=== PATIENT | female | born 1995 | race Caucasian/White ===

== ENCOUNTER 2017-04-14 14:19 | Emergency (ER) | payer BC, OTHER ==
[2017-04-14 14:24] VITALS: BP 113/71
[2017-04-14] MEDS ORDERED: Acetaminophen/oxyCODONE 325-5 MG Tab PO ONE (14:59)
--- NOTE | 2017-04-14 15:06 | EDM.PDOC ---
ED HPI GENERAL MEDICAL PROBLEM - General Chief Complaint: General Stated Complaint: R Ear pain Time Seen by Provider: 04/14/17 14:50 Source of Information: Reports: Patient History Limitations: Reports: No Limitations - History of Present Illness INITIAL COMMENTS - FREE TEXT/NARRATIVE: Patient complains of right ear pain that has been present for two days. Adds that she felt "pop" in ear on way here but no change in discomfort. Traction on ear lobe makes pain worse. Has been taking ibuprofen. Nothing really helps pain. Poor sleep for last two nights. Says pain at times runs down towards side of neck. Denies trauma. Denies recent cold/URI. No ear drainage. No other complaints. 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 Right Ear Pain Score (Numeric/FACES): 20 - Related Data Allergies Allergy/AdvReac Type Severity Reaction Status Date / Time amoxicillin Allergy Hives Verified 04/14/17 15:33 azithromycin Allergy Hives Verified 04/14/17 15:33 [From Zithromax Z-Julián] ketorolac tromethamine Allergy Redness Verified 04/14/17 15:33 [From Toradol] latex Allergy Rash Verified 04/14/17 15:33 Penicillins Allergy Anaphylactic Verified 04/14/17 15:33 Shock Sulfa (Sulfonamide Allergy Anaphylactic Verified 04/14/17 15:33 Antibiotics) Shock vancomycin Allergy Hives Verified 04/14/17 15:33 BANDAID ADHESIVE Allergy Rash Uncoded 04/14/17 15:33 Home Meds: Home Meds Insulin Glarg,Human.Rec.Analog [Lantus] 30 units SQ QPM 08/12/14 [History] Insulin Lispro [HumaLOG] 2 unit SQ ASDIRECTED 06/05/16 [History] Acetaminophen with Codeine [Tylenol with Codeine #3 Tablet] 1 each PO Q6HR PRN # 8 tablet 04/14/17 [Rx] Hydrocort/Neomycin/Polymyxin B [Cortisporin Otic Susp] 10 ml EARRT QID #1 bottle 04/14/17 [Rx] Past Medical History HEENT History: Reports: Cataract, Other (See Below) Other HEENT History: diabetic retinopathy Cardiovascular History: Reports: Heart Murmur Respiratory History: Reports: Asthma, Bronchitis, Recurrent, Pneumonia, Recurrent Gastrointestinal History: Reports: None Genitourinary History: Reports: Pyelonephritis 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 fractured left arm 2011 and right foot 2014. fractured skull 2013. 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 - Infectious Disease History Infectious Disease History: Reports: None - Past Surgical History Head Surgeries/Procedures: Reports: None GI Surgical History: Reports: Appendectomy Social & Family History - Tobacco Use Smoking Status *Q: Current Every Day Smoker Years of Tobacco use: 6 Packs/Tins Daily: 0.5 Used Tobacco, but Quit: No Second Hand Smoke Exposure: Yes - Caffeine Use Caffeine Use: Reports: None - Alcohol Use Days Per Week of Alcohol Use: 0 - Recreational Drug Use Recreational Drug Use: No - Living Situation & Occupation Living situation: Reports: with Significant Other ED ROS GENERAL - Review of Systems Review Of Systems: See Below Constitutional: Reports: No Symptoms HEENT: Reports: Ear Pain, Other (Says hearing is a bit different out of right ear, but no complaint of hearing loss). Denies: Dental Pain, Ear Discharge, Eye Discharge, Eye Pain, Glasses, Hearing Loss, Nosebleed, Nose Pain, Rhinitis, Sinus Problem, Throat Pain, Throat Swelling, Vertigo, Vision Change Respiratory: Reports: No Symptoms Cardiovascular: Reports: No Symptoms GI/Abdominal: Reports: No Symptoms : Reports: No Symptoms Musculoskeletal: Reports: No Symptoms Skin: Reports: No Symptoms Neurological: Reports: No Symptoms Psychiatric: Reports: No Symptoms Hematologic/Lymphatic: Reports: No Symptoms ED EXAM, GENERAL - Physical Exam Exam: See Below Free Text/Narrative:: Patient told nursing staff at time of intake that pain was "20" on scale of 1- 10. No appearance of discomfort. Walking around room easily, squatting on floor to interact with baby, bending over without difficulty. Speaks easily, normal level of interaction. Exam Limited By: No Limitations General Appearance: Alert, WD/WN, No Apparent Distress Eye Exam: Bilateral Eye: EOMI, PERRL Ear Exam: Right Ear: Tenderness, Other (pain with traction of ear lobe. Inner canal has area of erythema. No skin breakdown. No vesicles/pustules/scaling noted. ), Left Ear: Canal Normal, Bilateral Ear: Auricle Normal, TM normal Nose: Normal Inspection Throat/Mouth: Normal Inspection, Normal Voice, No Airway Compromise Head: Atraumatic, Normocephalic Neck: Normal Inspection, Supple, Non-Tender, Full Range of Motion. No: Lymphadenopathy (L), Lymphadenopathy (R) Respiratory/Chest: No Respiratory Distress Extremities: Normal Capillary Refill Neurological: Alert, Oriented, Normal Cognition, Normal Gait, No Motor/Sensory Deficits Psychiatric: Normal Affect, Normal Mood Skin Exam: Warm Course - Vital Signs Last Recorded V/S: Last Vital Signs Temp 36.7 C 04/14/17 14:24 Pulse 100 04/14/17 14:24 Resp 16 04/14/17 14:24 BP 113/71 04/14/17 14:24 Pulse Ox 100 04/14/17 14:24 - Orders/Labs/Meds Meds: Medications Discontinued Medications Generic Name Dose Route Start Last Admin Trade Name Chidi PRN Reason Stop Dose Admin Oxycodone/Acetaminophen 1 tab 04/14/17 14:59 04/14/17 15:11 Percocet 325-5 Mg PO 04/14/17 15:00 1 tab ONETIME ONE Administration - Re-Assessments/Exams Free Text/Narrative Re-Assessment/Exam: 04/14/17 16:40 Exam unremarkable except for reddened area noted inside right ear canal. May be otitis externa. Does have discomfort with traction on ear. TM appeared completely normal today. Again, patient complains of having significant pain and wants something so she can "sleep". No outward signs of discomfort observed at all during interaction. At this point in time will treat with Cortisporin drops as well as give small amount of T#3. Patient told to watch for changes/new symptoms. She is to follow up at clinic for recheck if symptoms do not improve over the weekend. She is to follow up as needed if things worsen suddenly. Departure - Departure Time of Disposition: 14:59 Disposition: Home, Self-Care 01 Condition: good Clinical Impression: Right ear pain Otitis externa of right ear Qualifiers: Otitis externa type: unspecified type Chronicity: acute Qualified Code(s): H60.501 - Unspecified acute noninfective otitis externa, right ear - Discharge Information Prescriptions: Acetaminophen with Codeine [Tylenol with Codeine #3 Tablet] 1 each PO Q6HR PRN # 8 tablet PRN Reason: Pain Hydrocort/Neomycin/Polymyxin B [Cortisporin Otic Susp] 10 ml EARRT QID #1 bottle Instructions: Otitis Externa, [id number] Referrals: PCP,None [Ordering Only Provider] - Forms: ED Department Discharge Additional Instructions: See if pain improves with the ear drops over the next few days. You have redness and irritation of skin in the canal on that right side. At present, your ear drum appears normal. No redness. No bulging. No obvious fluid. No signs of infection. If pain persists, follow up with your clinic/ locally and have your ear rechecked to see if anything has changed. They can adjust the treatment if needed.
== END 2017-04-14 15:25 | disposition home or self-care (01) ==
LOC: LL.ED 14:19
DX: H60.501 Unspecified acute noninfective otitis externa, right ear (principal); J45.909 Unspecified asthma, uncomplicated; E10.9 Type 1 diabetes mellitus without complications; Z90.49 Acquired absence of other specified parts of digestive tract; F17.210 Nicotine dependence, cigarettes, uncomplicated; Z88.1 Allergy status to other antibiotic agents; Z88.0 Allergy status to penicillin; Z88.5 Allergy status to narcotic agent; Z91.040 Latex allergy status; Z88.2 Allergy status to sulfonamides; Z91.09 Other allergy status, other than to drugs and biological substances; Z79.4 Long term (current) use of insulin
CPT/HCPCS: 99282; A9270

== ENCOUNTER 2017-11-24 19:35 | Emergency (ER) | payer MEDICAID, OTHER ==
[2017-11-24 19:59] VITALS: BP 150/71
--- NOTE | 2017-11-24 20:11 | EDM.PDOC ---
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 patient and her mother were extensively counseled on importance of tobacco cessation KEKE especially in light of current , child in the home, her diabetes, asthma, etc. She apparently already have tobacco cessation information at home, but does not appear interested in stopping. (7) Iron deficiency anemia SNOMED Code(s): 22610447 Code(s): D50.9 - IRON DEFICIENCY ANEMIA, UNSPECIFIED Status: Chronic Priority: High Annotation/Comment:: Progressive anemia as above Qualifiers: Iron deficiency anemia type: other iron deficiency Qualified Code(s): D50.8 - Other iron deficiency anemias (8) Hyperkalemia SNOMED Code(s): 86800025 Code(s): E87.5 - HYPERKALEMIA Status: Acute Priority: Medium Onset Date : 11/24/17 Annotation/Comment:: Mild hyperkalemia despite recurrent emesis and recent diarrhea. Continue to observe renal function closely with diabetic nephropathy, etc. as above. Note blood draw prior to initiation of lactated Ringer's - Problem List Review Problem List Initiated/Reviewed/Updated: Yes - My Orders Last 24 Hours: My Active Orders 11/24/17 20:11 Blood Culture x2 Reflex Set [OM.PC] Urgent 11/24/17 20:13 Peripheral IV Care [RC] . DIRECTED Peripheral IV Insertion Adult [OM.PC] Routine 11/24/17 20:14 Obtain Past Medical Record [OM.PC] Routine 11/24/17 20:20 CULTURE STREP A CONFIRMATION [] Stat STREP SCRN A RAPID W CULT CONF [RM] Stat 11/24/17 20:25 CULTURE BLOOD [BC] Stat 11/24/17 20:46 CULTURE BLOOD [BC] Stat - Assessment/Plan Last 24 Hours: My Active Orders 11/24/17 20:11 Blood Culture x2 Reflex Set [OM.PC] Urgent 11/24/17 20:13 Peripheral IV Care [RC] . DIRECTED Peripheral IV Insertion Adult [OM.PC] Routine 11/24/17 20:14 Obtain Past Medical Record [OM.] Routine 11/24/17 20:20 CULTURE STREP A CONFIRMATION [RM] Stat STREP SCRN A RAPID W CULT CONF [RM] Stat 11/24/17 20:25 CULTURE BLOOD [BC] Stat 11/24/17 20:46 CULTURE BLOOD [BC] Stat Assessment:: As above Plan: As above. Extensive precautions were given to the patient and her mother, who is in agreement with the treatment plan. See Patient Instructions for further treatment and plan.
[2017-11-24] MEDS ORDERED: Lactated Ringers 1,000 ML IV ONE (20:13)
[2017-11-24] MEDS ORDERED: Sodium Chloride 0.9% 10 ML Syringe FLUSH PRN (20:13)
[2017-11-24] MEDS ORDERED: Famotidine 20 MG/2 ML SDV IVPUSH ONE (20:14)
[2017-11-24] MEDS ORDERED: Pantoprazole 40 MG Vial IVPUSH ONE (20:14)
== END 2017-11-24 21:40 | disposition home or self-care (01) ==
LOC: LL.ED 19:35
DX: O99.613 Diseases of the digestive system complicating pregnancy, third trimester (principal); K21.9 Gastro-esophageal reflux disease without esophagitis; K80.20 Calculus of gallbladder without cholecystitis without obstruction; O26.23 Pregnancy care for patient with recurrent pregnancy loss, third trimester; O99.283 Endocrine, nutritional and metabolic diseases complicating pregnancy, third trimester; E87.5 Hyperkalemia; O99.013 Anemia complicating pregnancy, third trimester; D50.8 Other iron deficiency anemias; O24.013 Pre-existing type 1 diabetes mellitus, in pregnancy, third trimester; E10.21 Type 1 diabetes mellitus with diabetic nephropathy; E10.42 Type 1 diabetes mellitus with diabetic polyneuropathy; O99.513 Diseases of the respiratory system complicating pregnancy, third trimester; J45.20 Mild intermittent asthma, uncomplicated; O99.333 Smoking (tobacco) complicating pregnancy, third trimester; F17.210 Nicotine dependence, cigarettes, uncomplicated; Z79.4 Long term (current) use of insulin; Z88.0 Allergy status to penicillin; Z88.1 Allergy status to other antibiotic agents; Z88.2 Allergy status to sulfonamides; Z88.6 Allergy status to analgesic agent; Z91.040 Latex allergy status; Z91.048 Other nonmedicinal substance allergy status; Z71.6 Tobacco abuse counseling; Z3A.32 32 weeks gestation of pregnancy
CPT/HCPCS: 36415; 80053; 82009; 82150; 82247; 82248; 83605; 83690; 83735; 84100; 84550; 85025; 85610; 85730; 86140; 87040; 87081; 87430; 87804; 96361; 96374; 96375; 99284; C9113; J7050; J7120; S0028

== ENCOUNTER 2018-07-23 21:05 | Emergency (ER) | payer MEDICAID ==
[2018-07-23 21:12] VITALS: BP 143/86
[2018-07-23] MEDS ORDERED: traMADol 50 MG Tab PO ONE (21:52)
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
== END 2018-07-23 22:45 | disposition left against medical advice (07) ==
LOC: LL.ED 21:05
DX: E87.6 Hypokalemia (principal); N19 Unspecified kidney failure; F17.210 Nicotine dependence, cigarettes, uncomplicated; J45.909 Unspecified asthma, uncomplicated; E10.319 Type 1 diabetes mellitus with unspecified diabetic retinopathy without macular edema; E10.42 Type 1 diabetes mellitus with diabetic polyneuropathy; E10.21 Type 1 diabetes mellitus with diabetic nephropathy; Z88.0 Allergy status to penicillin; Z88.1 Allergy status to other antibiotic agents; Z91.040 Latex allergy status; Z79.4 Long term (current) use of insulin; Z79.899 Other long term (current) drug therapy
CPT/HCPCS: 36415; 80053; 81001; 85025; 99284; A9270-GY

== ENCOUNTER 2018-08-30 01:33 | Emergency (ER) | payer MEDICAID ==
[2018-08-30] MEDS ORDERED: Metoclopramide 10 MG/2 ML SDV IVPUSH ONE (01:40)
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
[2018-08-30] MEDS ORDERED: diphenhydrAMINE 50 MG/ML SDV IVPUSH ONE (01:41)
[2018-08-30] MEDS ORDERED: Sodium Chloride 0.9% 10 ML Syringe FLUSH PRN (01:43)
[2018-08-30] MEDS: Lactated Ringers 1,000 ML IV ONE ×2 (01:48→02:06)
[2018-08-30 02:01] VITALS: BP 135/95
[2018-08-30] MEDS ORDERED: Sodium Chloride 0.9% 1,000 ML IV ONE (02:09)
[2018-08-30] MEDS ORDERED: LORazepam 2 MG/ML SDV IVPUSH ONE (02:12)
== END 2018-08-30 03:20 | disposition home or self-care (01) ==
LOC: LL.ED 01:33
DX: R51 Headache (principal); J45.20 Mild intermittent asthma, uncomplicated; E10.21 Type 1 diabetes mellitus with diabetic nephropathy; K21.9 Gastro-esophageal reflux disease without esophagitis; Z71.6 Tobacco abuse counseling; Z88.0 Allergy status to penicillin; Z88.1 Allergy status to other antibiotic agents; Z88.2 Allergy status to sulfonamides; Z91.040 Latex allergy status; Z91.09 Other allergy status, other than to drugs and biological substances; Z79.4 Long term (current) use of insulin; E10.22 Type 1 diabetes mellitus with diabetic chronic kidney disease; N18.9 Chronic kidney disease, unspecified; F17.210 Nicotine dependence, cigarettes, uncomplicated
CPT/HCPCS: 96361; 96374; 96375; 99284; J1200; J2060; J2765; J7030; J7050; J7120

== ENCOUNTER 2019-01-07 13:07 | Emergency (ER) | payer MEDICAID ==
[2019-01-07 13:15] VITALS: BP 145/90
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
[2019-01-07] MEDS ORDERED: traMADol 50 MG Tab PO ONE (14:09)
[2019-01-07] MEDS ORDERED: Acetaminophen 325 MG Tab PO ONE (14:14)
== END 2019-01-07 14:25 | disposition home or self-care (01) ==
LOC: LL.ED 13:07
DX: S60.221A Contusion of right hand, initial encounter (principal); F17.210 Nicotine dependence, cigarettes, uncomplicated; E10.21 Type 1 diabetes mellitus with diabetic nephropathy; E10.319 Type 1 diabetes mellitus with unspecified diabetic retinopathy without macular edema; J45.909 Unspecified asthma, uncomplicated; W55.09XA Other contact with cat, initial encounter; Z88.1 Allergy status to other antibiotic agents; Z88.5 Allergy status to narcotic agent; Z88.0 Allergy status to penicillin; Z88.2 Allergy status to sulfonamides; Z79.4 Long term (current) use of insulin; Z79.899 Other long term (current) drug therapy
CPT/HCPCS: 73100-RT; 73120-RT; 73140-F9; 99283; A9270-GY

== ENCOUNTER 2019-04-26 22:15 | Emergency (ER) | payer MEDICAID ==
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
[2019-04-26 22:21] VITALS: BP 143/92
[2019-04-26] MEDS ORDERED: diphenhydrAMINE 50 MG/ML SDV IVPUSH ONE (22:30)
[2019-04-26] MEDS ORDERED: LORazepam 2 MG/ML SDV IVPUSH ONE (22:30)
[2019-04-26] MEDS ORDERED: Promethazine 25 MG/ML SDV IM ONE (22:32)
[2019-04-26] MEDS: Sodium Chloride 0.9% 10 ML Syringe FLUSH PRN ×3 (22:59→23:01)
== END 2019-04-26 23:52 | disposition home or self-care (01) ==
LOC: LL.ED 22:15
DX: G43.009 Migraine without aura, not intractable, without status migrainosus (principal); E10.21 Type 1 diabetes mellitus with diabetic nephropathy; I12.0 Hypertensive chronic kidney disease with stage 5 chronic kidney disease or end stage renal disease; N18.5 Chronic kidney disease, stage 5; J45.909 Unspecified asthma, uncomplicated; Z71.6 Tobacco abuse counseling; K21.9 Gastro-esophageal reflux disease without esophagitis; E10.22 Type 1 diabetes mellitus with diabetic chronic kidney disease; F17.210 Nicotine dependence, cigarettes, uncomplicated; Z98.49 Cataract extraction status, unspecified eye; Z98.890 Other specified postprocedural states; Z90.49 Acquired absence of other specified parts of digestive tract; Z88.0 Allergy status to penicillin; Z88.1 Allergy status to other antibiotic agents; Z91.040 Latex allergy status; Z88.6 Allergy status to analgesic agent; Z88.2 Allergy status to sulfonamides; Z91.09 Other allergy status, other than to drugs and biological substances
CPT/HCPCS: 96372; 96374; 96375; 99283-25; J1200; J1642; J2060; J2550

== ENCOUNTER 2019-10-31 01:18 | Emergency (ER) | payer MEDICAID, MEDICARE ==
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
[2019-10-31] MEDS: Morphine 2 MG/ML Syringe IVPUSH ONE ×2 (02:00→02:37)
[2019-10-31] MEDS ORDERED: Metoprolol Tartrate 25 MG Tab PO ONE (02:16)
[2019-10-31] MEDS ORDERED: Morphine 2 MG/ML Syringe IM ONE (02:17)
[2019-10-31 02:51] VITALS: BP 216/97; PULSE 80
== END 2019-10-31 02:37 ==
LOC: LL.ED 01:18
DX: R07.9 Chest pain, unspecified (principal); I12.0 Hypertensive chronic kidney disease with stage 5 chronic kidney disease or end stage renal disease; E10.22 Type 1 diabetes mellitus with diabetic chronic kidney disease; N18.6 End stage renal disease; D72.829 Elevated white blood cell count, unspecified; E10.21 Type 1 diabetes mellitus with diabetic nephropathy; E10.42 Type 1 diabetes mellitus with diabetic polyneuropathy; E10.319 Type 1 diabetes mellitus with unspecified diabetic retinopathy without macular edema; E10.43 Type 1 diabetes mellitus with diabetic autonomic (poly)neuropathy; K31.84 Gastroparesis; E10.36 Type 1 diabetes mellitus with diabetic cataract; H26.9 Unspecified cataract; I25.2 Old myocardial infarction; J45.909 Unspecified asthma, uncomplicated; Z86.718 Personal history of other venous thrombosis and embolism; Z79.4 Long term (current) use of insulin; Z88.0 Allergy status to penicillin; Z88.1 Allergy status to other antibiotic agents; Z88.2 Allergy status to sulfonamides; Z88.6 Allergy status to analgesic agent; Z88.8 Allergy status to other drugs, medicaments and biological substances; Z91.040 Latex allergy status; Z91.048 Other nonmedicinal substance allergy status; Z99.2 Dependence on renal dialysis
CPT/HCPCS: 36415; 71046; 85025; 85379; 85610; 93005; 93010; 99284; 99285-25; J2270

== ENCOUNTER 2021-07-03 05:25 | Emergency (ER) | payer MEDICARE, MEDICAID ==
[~2021-07-03 05:25] MED LIST: 50% Dextrose in Water 50 ML Syringe IV ONE
[2021-07-03] MEDS ORDERED: Naloxone 0.4 MG/ML SDV IV ONE ×2 (05:30→05:33)
[2021-07-03] MEDS ORDERED: LORazepam 2 MG/ML SDV IVPUSH ONE ×2 (05:52→06:51)
[2021-07-03] MEDS ORDERED: diphenhydrAMINE 50 MG/ML SDV IVPUSH ONE (05:52)
[2021-07-03 06:04] LABS: ANION GAP 10.1 meq/L (7-15); CHLORIDE,CL 101 mmol/L (98-107); SODIUM,NA 138 mmol/L (136-145)
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
[2021-07-03] MEDS ORDERED: Haloperidol Lactate 5 MG/ML SDV IV ONE (06:37)
[2021-07-03] MEDS ORDERED: 25% Dextrose in Water 10 ML Syringe IVPUSH ONE (06:56)
[2021-07-03] MEDS ORDERED: LORazepam 2 MG/ML SDV ONE (07:08)
== END 2021-07-03 07:20 ==
LOC: LL.ED 05:25
DX: T68.XXXA Hypothermia, initial encounter (principal); E11.649 Type 2 diabetes mellitus with hypoglycemia without coma; R40.0 Somnolence; I25.2 Old myocardial infarction; E11.319 Type 2 diabetes mellitus with unspecified diabetic retinopathy without macular edema; E11.40 Type 2 diabetes mellitus with diabetic neuropathy, unspecified; E11.21 Type 2 diabetes mellitus with diabetic nephropathy; Z79.4 Long term (current) use of insulin; Z79.899 Other long term (current) drug therapy; Z88.0 Allergy status to penicillin; Z88.1 Allergy status to other antibiotic agents; Z91.040 Latex allergy status; Z88.2 Allergy status to sulfonamides; Z88.6 Allergy status to analgesic agent; Z88.8 Allergy status to other drugs, medicaments and biological substances
CPT/HCPCS: 36415; 71045; 80053; 82947; 83605; 83735; 85025; 96374; 96375; 99284; 99285-25; J1200; J1630; J2060; J2310; J3360

== ENCOUNTER 2021-08-11 05:48 | Emergency (ER) | payer MEDICARE, MEDICAID ==
[2021-08-11] MEDS ORDERED: Sodium Chloride 0.9% 10 ML Syringe FLUSH PRN (06:45)
[2021-08-11 07:04] VITALS: BP 170/92; PULSE 87
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
[2021-08-11 07:36] LABS: CHLORIDE,CL 97 mmol/L (98-107); SODIUM,NA 138 mmol/L (136-145)
[2021-08-11 07:52] LABS: ANION GAP 18.4 meq/L (7-15)
[2021-08-11] MEDS: Albuterol/Ipratropium 3.0-0.5 MG/3 ML Neb Soln NEB ONE (08:44)
[2021-08-11] MEDS: diphenhydrAMINE 50 MG/ML SDV IVPUSH ONE (08:44)
[2021-08-11] MEDS: ALPRAZolam 0.25 MG Tab PO ONE (08:44)
[2021-08-11] MEDS: HYDROmorphone 0.5 MG/0.5 ML Syringe IVPUSH ONE (08:44)
[2021-08-11] MEDS: methylPREDNISolone Sodium Succinate 125 MG/2 ML SDV IVPUSH ONE (08:44)
[2021-08-11] MEDS: Glucose Gel 15 GM in 37.5 GM Tube PO ONE (10:04)
[2021-08-13 13:35] LABS: PCO2 ARTERIAL,POC 44 mmHg (35-48)
== END 2021-08-11 13:52 ==
LOC: LL.ED 05:48
DX: R06.03 Acute respiratory distress (principal); E87.70 Fluid overload, unspecified; E10.319 Type 1 diabetes mellitus with unspecified diabetic retinopathy without macular edema; E10.22 Type 1 diabetes mellitus with diabetic chronic kidney disease; E10.43 Type 1 diabetes mellitus with diabetic autonomic (poly)neuropathy; E10.21 Type 1 diabetes mellitus with diabetic nephropathy; N18.9 Chronic kidney disease, unspecified; D63.1 Anemia in chronic kidney disease; K31.84 Gastroparesis; I25.2 Old myocardial infarction; Z88.0 Allergy status to penicillin; Z88.1 Allergy status to other antibiotic agents; Z88.6 Allergy status to analgesic agent; Z91.040 Latex allergy status; Z88.5 Allergy status to narcotic agent; Z88.2 Allergy status to sulfonamides; Z91.048 Other nonmedicinal substance allergy status; Z79.4 Long term (current) use of insulin; Z20.822 Contact with and (suspected) exposure to COVID-19
CPT/HCPCS: 36415; 36600; 71045; 80053; 82803; 82947; 83605; 83735; 84703; 85025; 85379; 87040; 87426; 99284; 99285-25; A9270-GY; J1170; J1200; J2930

== ENCOUNTER 2021-08-24 07:52 | Emergency (ER) | payer MEDICARE, MEDICAID ==
[2021-08-24] MEDS ORDERED: Nitroglycerin 0.4 MG Tab.SL SL PRN (08:06)
[2021-08-24] MEDS ORDERED: Nitroglycerin 0.4 MG Tab.SL ONE (08:08)
[2021-08-24] MEDS ORDERED: Morphine 4 MG/ML Syringe ONE (08:08)
[2021-08-24] MEDS ORDERED: Morphine 4 MG/ML Syringe IVPUSH ONE ×2 (08:10→09:40)
[2021-08-24] MEDS ORDERED: Nitroglycerin/D5W 25 MG/250 ML BOTTLE ONE (08:11)
[2021-08-24] MEDS ORDERED: Sodium Chloride 0.9% 10 ML Syringe FLUSH PRN (08:15)
[2021-08-24] MEDS ORDERED: Nitroglycerin 0.4 MG Tab.SL SL ONE (08:16)
[2021-08-24] MEDS ORDERED: diphenhydrAMINE 50 MG/ML SDV IVPUSH ONE (08:22)
[2021-08-24] MEDS ORDERED: Nitroglycerin/D5W 25 MG/250 ML BOTTLE IV SCH (08:30)
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
[2021-08-24 08:35] LABS: O2 DELIVERY DEVICE BIPAP
[2021-08-24 08:45] LABS: PCO2 VENOUS 64 mmHG (41-51); PH,VENOUS 7.23 (7.31-7.41); PO2 VENOUS 217 mmHG
[2021-08-24 08:46] LABS: BASE EXCESS VENOUS -1 mmol/L ((-2)-3); BICARBONATE,VENOUS 27 mmol/L (23-28); O2 SATURATION VENOUS 100 %
[2021-08-24 08:55] LABS: CHLORIDE,CL 94 mmol/L (98-107); SODIUM,NA 135 mmol/L (136-145)
--- NOTE | 2021-08-24 08:59 | PCM.EKG ---
#1 Interpretation EKG Date: 08/24/21 Time: 08:37 Rhythm: NSR Rate (Beats/Min): 77 [place]: Normal P-Wave: Present QRS: Normal ST-T: Normal QT: Normal Comparison: No Change
[2021-08-24 09:02] LABS: ANION GAP 19.7 meq/L (7-15)
[2021-08-24 16:12] VITALS: PULSE 76
[2021-08-24 16:13] VITALS: BP 182/88
== END 2021-08-24 11:30 ==
LOC: LL.ED 07:52
DX: J96.02 Acute respiratory failure with hypercapnia (principal); E10.22 Type 1 diabetes mellitus with diabetic chronic kidney disease; N18.6 End stage renal disease; D63.1 Anemia in chronic kidney disease; J81.0 Acute pulmonary edema; I25.2 Old myocardial infarction; E10.319 Type 1 diabetes mellitus with unspecified diabetic retinopathy without macular edema; J45.909 Unspecified asthma, uncomplicated; E10.43 Type 1 diabetes mellitus with diabetic autonomic (poly)neuropathy; K31.84 Gastroparesis; M19.90 Unspecified osteoarthritis, unspecified site; E10.42 Type 1 diabetes mellitus with diabetic polyneuropathy; Z99.2 Dependence on renal dialysis; Z88.0 Allergy status to penicillin; Z88.1 Allergy status to other antibiotic agents; Z88.6 Allergy status to analgesic agent; Z88.5 Allergy status to narcotic agent; Z91.040 Latex allergy status; Z88.8 Allergy status to other drugs, medicaments and biological substances; Z88.2 Allergy status to sulfonamides; Z91.048 Other nonmedicinal substance allergy status; Z79.899 Other long term (current) drug therapy; Z20.822 Contact with and (suspected) exposure to COVID-19
CPT/HCPCS: 36415; 71045; 80053; 82803; 82947; 83605; 83880; 84145; 84484; 85025; 86140; 87426; 93005; 96365; 96366; 96375; 99284; 99285-25; A9270-GY; J1200; J2270; J3490

== ENCOUNTER 2021-10-04 23:38 | Emergency (ER) | payer MEDICARE, MEDICAID ==
[~2021-10-04 23:38] MED LIST changes: -50% Dextrose in Water 50 ML Syringe IV ONE; +Sodium Chloride 0.9% 10 ML Syringe FLUSH PRN
[2021-10-04] MEDS ORDERED: Piperacillin/Tazobactam 2.25 GM in Sodium Chloride 0.9% 100 ML IV STA (23:40)
[2021-10-04] MEDS ORDERED: cefTRIAXone 2 GM Vial IVPUSH STA (23:43)
[2021-10-04] MEDS ORDERED: Acetaminophen 500 MG Tab PO ONE (23:58)
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
[2021-10-05] MEDS ORDERED: Acetaminophen 120 MG Supp RECTAL ONE (00:03)
[2021-10-05] MEDS ORDERED: Acetaminophen 650 MG Supp RECTAL ONE (00:03)
[2021-10-05] MEDS ORDERED: Linezolid 600 MG in Premix Bag 1 BAG IV STA (00:05)
[2021-10-05 00:11] LABS: O2 DELIVERY DEVICE NON REBR MASK
[2021-10-05 00:15] LABS: BASE EXCESS VENOUS 2 mmol/L ((-2)-3); BICARBONATE,VENOUS 26 mmol/L (23-28); O2 SATURATION VENOUS 75 %; PCO2 VENOUS 35 mmHG (41-51); PH,VENOUS 7.47 (7.31-7.41); PO2 VENOUS 37 mmHG
--- NOTE | 2021-10-05 00:19 | PCM.EKG ---
#1 Interpretation EKG Date: 10/05/21 Time: 23:55 Rhythm: NSR Rate (Beats/Min): 105 [place]: Normal P-Wave: Present QRS: Normal ST-T: Normal (T wave inversion laterally V 4,V5,V6.) QT: Normal Comparison: Change From Previous EKG (With the T wave inversion laterally.)
[2021-10-05 00:38] LABS: ANION GAP 15.1 meq/L (7-15); CHLORIDE,CL 98 mmol/L (98-107); SODIUM,NA 139 mmol/L (136-145)
[2021-10-05] MEDS ORDERED: HYDROmorphone 0.5 MG/0.5 ML Syringe IV ONE (00:47)
[2021-10-05] MEDS ORDERED: diphenhydrAMINE 50 MG/ML SDV IVPUSH ONE (01:08)
[2021-10-05 03:21] VITALS: BP 140/62; PULSE 92
== END 2021-10-05 02:45 | disposition left against medical advice (07) ==
LOC: LL.ED 23:38
DX: T82.7XXA Infection and inflammatory reaction due to other cardiac and vascular devices, implants and grafts, initial encounter (principal); A41.9 Sepsis, unspecified organism; E10.22 Type 1 diabetes mellitus with diabetic chronic kidney disease; N18.6 End stage renal disease; J45.909 Unspecified asthma, uncomplicated; I25.2 Old myocardial infarction; E10.21 Type 1 diabetes mellitus with diabetic nephropathy; E10.42 Type 1 diabetes mellitus with diabetic polyneuropathy; E10.43 Type 1 diabetes mellitus with diabetic autonomic (poly)neuropathy; K31.84 Gastroparesis; Z99.2 Dependence on renal dialysis; Z91.19 Patient's noncompliance with other medical treatment and regimen; Z88.0 Allergy status to penicillin; Z88.1 Allergy status to other antibiotic agents; Z88.6 Allergy status to analgesic agent; Z88.5 Allergy status to narcotic agent; Z91.040 Latex allergy status; Z88.8 Allergy status to other drugs, medicaments and biological substances; Z88.2 Allergy status to sulfonamides; Z91.048 Other nonmedicinal substance allergy status; Z79.899 Other long term (current) drug therapy; Z20.822 Contact with and (suspected) exposure to COVID-19
CPT/HCPCS: 36415; 71045; 80053; 82803; 83605; 83735; 84145; 84484; 85025; 86140; 87040; 87077; 87186; 87804; 87807; 93005; 96365; 96366; 96375; 99285; 99285-25; A9270-GY; J0696; J1170; J1200; J1642; J2020; U0002

== ENCOUNTER 2021-10-19 12:17 | Emergency (ER) | payer MEDICARE, MEDICAID ==
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
[2021-10-19] MEDS: ALPRAZolam 1 MG Tab PO ONE (12:38)
[2021-10-19] MEDS: Sodium Chloride 0.9% 10 ML Syringe FLUSH ONE (13:13)
[2021-10-19] MEDS: Sodium Chloride 0.9% 10 ML Syringe FLUSH PRN (13:14)
[2021-10-19] MEDS: diphenhydrAMINE 50 MG/ML SDV IVPUSH ONE (13:14)
[2021-10-19 15:39] VITALS: BP 175/85; PULSE 102
== END 2021-10-19 13:27 | disposition home or self-care (01) ==
LOC: LL.ED 12:17
DX: F41.9 Anxiety disorder, unspecified (principal); I25.2 Old myocardial infarction; J45.909 Unspecified asthma, uncomplicated; E10.22 Type 1 diabetes mellitus with diabetic chronic kidney disease; N18.6 End stage renal disease; D63.1 Anemia in chronic kidney disease; E10.21 Type 1 diabetes mellitus with diabetic nephropathy; E10.42 Type 1 diabetes mellitus with diabetic polyneuropathy; E10.43 Type 1 diabetes mellitus with diabetic autonomic (poly)neuropathy; K31.84 Gastroparesis; M19.90 Unspecified osteoarthritis, unspecified site; Z88.0 Allergy status to penicillin; Z88.1 Allergy status to other antibiotic agents; Z88.5 Allergy status to narcotic agent; Z91.040 Latex allergy status; Z88.8 Allergy status to other drugs, medicaments and biological substances; Z88.6 Allergy status to analgesic agent; Z88.2 Allergy status to sulfonamides; Z91.048 Other nonmedicinal substance allergy status; Z79.899 Other long term (current) drug therapy
CPT/HCPCS: 96374; 99283-25; A9270-GY; J1200; J1642

== ENCOUNTER 2021-10-19 21:02 | Emergency (ER) | payer MEDICARE, MEDICAID ==
[2021-10-19] MEDS ORDERED: diphenhydrAMINE 50 MG/ML SDV ONE (21:05)
[2021-10-19] MEDS ORDERED: HYDROmorphone 1 MG/ML Syringe IVPUSH ONE (21:17)
[2021-10-19] MEDS ORDERED: methylPREDNISolone Sodium Succinate 125 MG/2 ML SDV IVPUSH ONE (21:26)
[2021-10-19 21:33] LABS: CHLORIDE,CL 101 mmol/L (98-107); SODIUM,NA 138 mmol/L (136-145)
[2021-10-19] MEDS: Albuterol/Ipratropium 3.0-0.5 MG/3 ML Neb Soln NEB ONE (21:38)
[2021-10-19] MEDS ORDERED: Glucagon,Human Recombinant 1 MG Vial IM PRN (21:39)
[2021-10-19] MEDS ORDERED: Insulin Regular, Human 100 Units/ML 3 ML Vial SUBCUT ONE (21:39)
[2021-10-19] MEDS ORDERED: 50% Dextrose in Water 50 ML Syringe IVPUSH PRN (21:39)
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
[2021-10-19 22:11] LABS: ANION GAP 21.4 meq/L (7-15)
[2021-10-19] MEDS: HYDROmorphone 0.5 MG/0.5 ML Syringe IVPUSH PRN (23:26)
[2021-10-19] MEDS: Sodium Chloride 0.9% 10 ML Syringe FLUSH PRN (23:30)
[2021-10-20] MEDS ORDERED: Insulin Regular, Human 100 Units/ML 3 ML Vial SUBCUT ONE ×3 (00:57→12:11)
[2021-10-20] MEDS ORDERED: 50% Dextrose in Water 50 ML Syringe IVPUSH PRN ×2 (00:57→02:32)
[2021-10-20] MEDS ORDERED: Glucagon,Human Recombinant 1 MG Vial IM PRN ×2 (00:57→02:32)
[2021-10-20] MEDS: HYDROmorphone 0.5 MG/0.5 ML Syringe IVPUSH PRN ×6 (02:07→16:14)
[2021-10-20] MEDS: Sodium Chloride 0.9% 10 ML Syringe FLUSH PRN ×8 (02:08→16:15)
[2021-10-20] MEDS: diphenhydrAMINE 50 MG/ML SDV IVPUSH PRN ×3 (03:48→16:14)
[2021-10-20] MEDS ORDERED: ALPRAZolam 0.25 MG Tab PO ONE (06:30)
[2021-10-20] MEDS ORDERED: LORazepam 2 MG/ML SDV IVPUSH ONE ×2 (07:20→11:30)
[2021-10-20] MEDS: Albuterol/Ipratropium 3.0-0.5 MG/3 ML Neb Soln NEB ONE (07:38)
[2021-10-20 08:07] VITALS: BP 190/84; PULSE 79
[2021-10-20] MEDS: Albuterol/Ipratropium 3.0-0.5 MG/3 ML Neb Soln NEB PRN ×2 (11:44→12:01)
[2021-10-20] MEDS ORDERED: Insulin Isophane NPH, Human 100 Units/ML 3 ML Vial SQ ONE (12:06)
[2021-10-20] MEDS ORDERED: Haloperidol Lactate 5 MG/ML SDV IVPUSH ONE (13:58)
[2021-10-20] MEDS ORDERED: Ondansetron 4 MG/2 ML SDV IVPUSH ONE (14:04)
[2021-10-20] MEDS ORDERED: hydrOXYzine HCl 50 MG/ML SDV IM ONE (14:21)
== END 2021-10-20 16:56 ==
LOC: LL.ED 21:02
DX: J96.02 Acute respiratory failure with hypercapnia (principal); E87.70 Fluid overload, unspecified; J81.0 Acute pulmonary edema; E10.22 Type 1 diabetes mellitus with diabetic chronic kidney disease; N18.6 End stage renal disease; D63.1 Anemia in chronic kidney disease; I25.2 Old myocardial infarction; J45.909 Unspecified asthma, uncomplicated; E10.21 Type 1 diabetes mellitus with diabetic nephropathy; E10.42 Type 1 diabetes mellitus with diabetic polyneuropathy; E10.43 Type 1 diabetes mellitus with diabetic autonomic (poly)neuropathy; K31.84 Gastroparesis; Z88.0 Allergy status to penicillin; Z88.1 Allergy status to other antibiotic agents; Z88.6 Allergy status to analgesic agent; Z88.5 Allergy status to narcotic agent; Z91.040 Latex allergy status; Z88.8 Allergy status to other drugs, medicaments and biological substances; Z88.2 Allergy status to sulfonamides; Z91.048 Other nonmedicinal substance allergy status; Z79.01 Long term (current) use of anticoagulants; Z79.899 Other long term (current) drug therapy; Z72.0 Tobacco use; Z20.822 Contact with and (suspected) exposure to COVID-19
CPT/HCPCS: 36415; 71045; 80053; 82947; 83605; 83735; 83880; 84484; 85025; 87426; 93005; 93010; 94640; 96372; 96374; 96375; 96376; 99283-25; 99284; 99285-25; A9270-GY; J1170; J1200; J1630; J1642; J1815-GY; J2060; J2405; J2930; J3410; J7620-GY

== ENCOUNTER 2021-11-01 18:42 | Emergency (ER) | payer MEDICARE, MEDICAID ==
[2021-11-01] MEDS ORDERED: Aspirin 81 MG Tab.Chew ONE (18:48)
[2021-11-01] MEDS ORDERED: Nitroglycerin 0.4 MG Tab.SL ONE (18:48)
[2021-11-01 19:00] LABS: O2 DELIVERY DEVICE NASAL CANNULA
[2021-11-01 19:10] LABS: BASE EXCESS VENOUS 4 mmol/L ((-2)-3); BICARBONATE,VENOUS 28 mmol/L (23-28); O2 SATURATION VENOUS 91 %; PCO2 VENOUS 38 mmHG (41-51); PH,VENOUS 7.47 (7.31-7.41); PO2 VENOUS 57 mmHG
[2021-11-01] MEDS ORDERED: LORazepam 2 MG/ML SDV ONE (19:11)
[2021-11-01] MEDS ORDERED: HYDROmorphone 1 MG/ML Syringe IVPUSH ONE ×3 (19:19→22:25)
[2021-11-01] MEDS ORDERED: diphenhydrAMINE 50 MG/ML SDV IVPUSH ONE ×2 (19:19→20:23)
[2021-11-01 19:54] LABS: ANION GAP 17.2 meq/L (7-15)
[2021-11-01] MEDS ORDERED: Sodium Polystyrene Sulfonate 15 GM/60 ML Susp 60 ML Bot PO ONE (19:54)
[2021-11-01] MEDS ORDERED: Labetalol 20 MG/4 ML Syringe IVPUSH ONE (19:55)
[2021-11-01] MEDS: Sodium Chloride 0.9% 10 ML Syringe FLUSH PRN (20:27)
[2021-11-01] MEDS ORDERED: Calcium Gluconate 10% 1 GM/10 ML SDV IVPUSH ONE (20:28)
[2021-11-01] MEDS ORDERED: Insulin Regular, Human 100 Units/ML 3 ML Vial IV ONE (20:50)
[2021-11-01] MEDS ORDERED: Glucagon,Human Recombinant 1 MG Vial IM PRN ×2 (20:50→22:44)
[2021-11-01] MEDS ORDERED: 50% Dextrose in Water 50 ML Syringe IVPUSH PRN ×2 (20:50→22:44)
[2021-11-01] MEDS ORDERED: Labetalol 100 MG in Sodium Chloride 0.9% 80 ML IV SCH (22:30)
[2021-11-01] MEDS ORDERED: Insulin Regular, Human 100 Units/ML 3 ML Vial SUBCUT ONE (22:44)
[2021-11-01] MEDS ORDERED: hydrALAZINE 20 MG/ML SDV IVPUSH ONE (22:49)
[2021-11-01] MEDS ORDERED: HYDROmorphone 1 MG/ML Syringe IVPUSH PRN (23:00)
[2021-11-01] MEDS ORDERED: hydrALAZINE 20 MG/ML SDV IVPUSH PRN (23:37)
[2021-11-02] MEDS: HYDROmorphone 1 MG/ML Syringe IVPUSH PRN ×3 (00:24→06:37)
[2021-11-02] MEDS ORDERED: LORazepam 2 MG/ML SDV IVPUSH ONE (01:24)
[2021-11-02] MEDS: Sodium Chloride 0.9% 10 ML Syringe FLUSH PRN (01:32)
[2021-11-02] MEDS ORDERED: diphenhydrAMINE 50 MG/ML SDV IVPUSH PRN (02:30)
[2021-11-02 07:00] VITALS: BP 174/72; PULSE 88
[2021-11-02] MEDS ORDERED: 50% Dextrose in Water 50 ML Syringe IVPUSH PRN (07:14)
[2021-11-02] MEDS ORDERED: Insulin Regular, Human 100 Units/ML 3 ML Vial SUBCUT ONE (07:14)
[2021-11-02] MEDS ORDERED: Glucagon,Human Recombinant 1 MG Vial IM PRN (07:14)
[2021-11-02 07:20] LABS: ANION GAP 26.1 meq/L (7-15)
== END 2021-11-02 07:25 ==
LOC: LL.ED 18:42
DX: J81.1 Chronic pulmonary edema (principal); I10 Essential (primary) hypertension; E10.319 Type 1 diabetes mellitus with unspecified diabetic retinopathy without macular edema; I25.2 Old myocardial infarction; J45.909 Unspecified asthma, uncomplicated; E10.22 Type 1 diabetes mellitus with diabetic chronic kidney disease; N18.6 End stage renal disease; D63.1 Anemia in chronic kidney disease; E10.21 Type 1 diabetes mellitus with diabetic nephropathy; M19.90 Unspecified osteoarthritis, unspecified site; E10.42 Type 1 diabetes mellitus with diabetic polyneuropathy; Z87.891 Personal history of nicotine dependence; Z76.5 Malingerer [conscious simulation]; Z88.0 Allergy status to penicillin; Z88.1 Allergy status to other antibiotic agents; Z88.6 Allergy status to analgesic agent; Z88.5 Allergy status to narcotic agent; Z91.040 Latex allergy status; Z88.8 Allergy status to other drugs, medicaments and biological substances; Z88.2 Allergy status to sulfonamides; Z91.048 Other nonmedicinal substance allergy status; Z79.01 Long term (current) use of anticoagulants; Z79.899 Other long term (current) drug therapy
CPT/HCPCS: 36415; 71045; 80048; 80053; 82550; 82803; 82947; 83605; 83735; 83880; 84132; 84443; 84484; 85025; 85379; 85610; 93005; 93010; 96374; 96375; 96376; 99284; 99285-25; A9270-GY; J0360; J0610; J1170; J1200; J1815-GY; J2060; J3490

== ENCOUNTER 2021-11-10 17:09 | Emergency (ER) | payer MEDICARE, MEDICAID ==
[2021-11-10] MEDS ORDERED: Nitroglycerin 2% Oint 1 GM UD Packet TOP ONE (17:22)
[2021-11-10] MEDS ORDERED: LORazepam 2 MG/ML SDV IVPUSH ONE ×2 (17:22→18:48)
[2021-11-10] MEDS ORDERED: Furosemide 40 MG/4 ML VIAL IVPUSH ONE (17:22)
[2021-11-10 18:27] LABS: CHLORIDE,CL 97 mmol/L (98-107); SODIUM,NA 134 mmol/L (136-145)
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
[2021-11-10] MEDS ORDERED: Sodium Polystyrene Sulfonate 15 GM/60 ML Susp 60 ML Bot PO ONE (18:31)
[2021-11-10] MEDS ORDERED: Albuterol 0.083% 2.5 MG/3 ML Neb Soln NEB ONE (18:31)
[2021-11-10] MEDS ORDERED: 50% Dextrose in Water 50 ML Syringe IVPUSH PRN (18:31)
[2021-11-10] MEDS ORDERED: Glucagon,Human Recombinant 1 MG Vial IM PRN (18:31)
[2021-11-10] MEDS ORDERED: Calcium Gluconate 1 GM in Sodium Chloride 0.9% 100 ML IV ONE (18:31)
[2021-11-10] MEDS ORDERED: Insulin Regular, Human 100 Units/ML 3 ML Vial IV ONE (18:31)
[2021-11-10] MEDS ORDERED: HYDROmorphone 1 MG/ML Syringe IVPUSH ONE (19:08)
[2021-11-10] MEDS ORDERED: diphenhydrAMINE 50 MG/ML SDV IVPUSH ONE (19:08)
[2021-11-10 19:20] LABS: CORONAVIRUS COVID-19 NAA NEGATIVE (NEGATIVE); RESPIRATORY SYNCYTIAL VIR NAA NEGATIVE (NEGATIVE)
[2021-11-10 19:57] VITALS: BP 187/88
[2021-11-10 20:00] VITALS: PULSE 89
== END 2021-11-10 20:45 | disposition home or self-care (01) ==
LOC: LL.ED 17:09
DX: N17.9 Acute kidney failure, unspecified (principal); E10.21 Type 1 diabetes mellitus with diabetic nephropathy; E10.22 Type 1 diabetes mellitus with diabetic chronic kidney disease; E10.65 Type 1 diabetes mellitus with hyperglycemia; N18.9 Chronic kidney disease, unspecified; E87.5 Hyperkalemia; I25.2 Old myocardial infarction; Z99.2 Dependence on renal dialysis; Z88.0 Allergy status to penicillin; Z88.1 Allergy status to other antibiotic agents; Z88.2 Allergy status to sulfonamides; Z91.040 Latex allergy status; Z88.6 Allergy status to analgesic agent; Z88.8 Allergy status to other drugs, medicaments and biological substances; Z79.01 Long term (current) use of anticoagulants; Z79.899 Other long term (current) drug therapy; Z79.4 Long term (current) use of insulin; Z20.822 Contact with and (suspected) exposure to COVID-19
CPT/HCPCS: 0241U; 36415; 71046; 80053; 83735; 84484; 85025; 85379; 85610; 86140; 93010; 94640; 96365; 96375; 99284; 99285-25; A9270-GY; J0610; J1170; J1200; J1815-GY; J1940; J2060; J7613-GY

== ENCOUNTER 2022-04-26 04:09 | Emergency (ER) | payer MEDICARE, MEDICAID ==
[2022-04-26 05:53] LABS: CHLORIDE,CL 93 mmol/L (98-107); SODIUM,NA 136 mmol/L (136-145)
[2022-04-26 05:54] LABS: ANION GAP 22.1 meq/L (7-15)
[2022-04-26 08:11] VITALS: BP 86/62; PULSE 92
[2022-04-26] MEDS: Naproxen 250 MG Tab PO PRN (08:38)
== END 2022-04-26 08:50 ==
LOC: LL.ED 04:09
DX: E10.22 Type 1 diabetes mellitus with diabetic chronic kidney disease (principal); N18.9 Chronic kidney disease, unspecified; I25.2 Old myocardial infarction; K21.9 Gastro-esophageal reflux disease without esophagitis; E10.21 Type 1 diabetes mellitus with diabetic nephropathy; F17.210 Nicotine dependence, cigarettes, uncomplicated; Z99.2 Dependence on renal dialysis; Z88.0 Allergy status to penicillin; Z88.1 Allergy status to other antibiotic agents; Z88.6 Allergy status to analgesic agent; Z91.048 Other nonmedicinal substance allergy status; Z88.5 Allergy status to narcotic agent; Z88.8 Allergy status to other drugs, medicaments and biological substances; Z79.4 Long term (current) use of insulin
CPT/HCPCS: 36415; 71045; 74176; 80048; 85025; 99284; 99285-25; A9270-GY